=== PATIENT | female | born 1965 | race Caucasian/White ===

== ENCOUNTER → 2020-12-11 | Day surgery (SDC) | payer OTHER ==
[~2020-12-11] MED LIST: Acetaminophen 500 MG TAB ONE; Acetaminophen 500 MG TAB PO SCH; CASIRIVIMAB 1,200 MG, IMDEVIMAB 1,200 MG in Sodium Chloride 0.9% 250 ML 250 ML IV SCH; diphenhydrAMINE 50 MG/ML VIAL IVP SCH; diphenhydrAMINE 50 MG/ML VIAL ONE
== END ==
LOC: CSHSDC/OP 09:46
PROVIDERS: ATTEND Family Medicine
DX: Z23 Encounter for immunization (principal); U07.1 COVID-19
CPT/HCPCS: J1200; J7050

== ENCOUNTER 2023-09-15 14:51 | Outpatient (CLI) | payer BC | END 2023-09-15 14:52 | disposition home or self-care (01) | LOC: CSHMAMMO 14:51 | PROVIDERS: ATTEND Obstetrics & Gynecology | DX: Z12.31 Encounter for screening mammogram for malignant neoplasm of breast (principal) | CPT/HCPCS: 77063; 77067 ==

== ENCOUNTER 2024-06-16 08:38 | Emergency (ER) | payer BC ==
[2024-06-16] MEDS ORDERED: Ondansetron PF 4 MG/2 ML Vial ONE (09:03)
[2024-06-16] MEDS ORDERED: Morphine 4 MG/ML VIAL ONE (09:03)
[2024-06-16 09:15] LABS: #Basophils 0.05 10x3/uL (0.0-0.2); #Eosinophils 0.09 10x3/uL (0.0-0.5); #Monocytes 0.79 10x3/uL (0.0-1.1); #Neutrophils 11.04 10x3/uL (1.5-8.4); %Basophils 0.4 % (0.0-2.0); %Eosinophils 0.7 % (0.0-6.0); %Lymphocytes 10.6 % (18.0-47.0); %Monocytes 5.9 % (0.0-10.0); %Neutrophils 82.1 % (40.0-75.0); Hematocrit 43.2 % (34.9-44.5); Hemoglobin 14.4 g/dL (12.0-15.5); Mean Corpuscular HGB CONC 33.3 g/dL (32.0-36.0); Mean Corpuscular Hemoglobin 28.1 pg (27.0-33.0); Mean Corpuscular Volume 84.4 fL (81.6-98.3); Mean Platelet Volume 10.9 fL (7.4-10.4); Platelet Count 326 10x3/uL (150-450); Red Blood Cell (RBC) Count 5.12 10x6/uL (3.90-5.03); White Blood Cell (WBC) Count 13.4 10x3/uL (3.5-10.5)
[2024-06-16 09:28] LABS: ALT (SGPT) 66 U/L (8-55); AST (SGOT) 78 U/L (5-34); Albumin 4.3 g/dL (3.5-5.0); Alkaline Phosphatase 69 U/L (40-110); Anion Gap 15 mmol/L (10-20); BUN (Urea Nitrogen) 20 mg/dL (9.8-20.1); Bilirubin, Total 0.9 mg/dL (0.2-1.2); Calc. Creatinine Clearance 0 mL/min (70-130); Calcium 10.2 mg/dL (7.8-10.44); Carbon Dioxide 22 mmol/L (22-29); Chloride 107 mmol/L (98-107); Estimated GFR 81; Globulin 4.2 g/dL (2.4-3.5); Glucose 139 mg/dL (70-105); Lipase 57 U/L (8-78); Potassium 3.7 mmol/L (3.5-5.1); Protein, Total 8.5 g/dL (6.0-8.3); Sodium 140 mmol/L (136-145)
[2024-06-16 09:39] LABS: Bilirubin Neg (Negative); Blood, Urine Negative (Negative); Clarity Clear (Clear); Glucose, Urine (Dipstick) Normal (Negative); Ketone, Urine Negative (Negative); Leukocyte 25 (Negative); Nitrite Negative (Negative); Protein, Urine (Dipstick) 30 mg/dl (Neg-Trace)
[2024-06-16 09:47] LABS: Bacteria/HPF 2+ HPF (None Seen); CAUTI Indications for Culture Pelvic or flank pain; Mucous/LPF 3+ LPF (<2+); RBC/HPF None Seen HPF (0-3); Squamous Epithelial 0-3 HPF (0-3); Urine Culture Reflex No No; WBC/HPF 0-3 HPF (0-3)
[2024-06-16] MEDS ORDERED: Iopamidol 300 61% 100 ML VIAL FS ONE (12:05)
== END 2024-06-16 12:44 | disposition home or self-care (01) ==
LOC: CSHERS 08:38
DX: K80.20 Calculus of gallbladder without cholecystitis without obstruction (principal); E03.9 Hypothyroidism, unspecified; I10 Essential (primary) hypertension; Z79.899 Other long term (current) drug therapy
CPT/HCPCS: 74177; 76705; 80053; 81001; 83690; 85025; 93005; 96374; 96375; J2272; J2405; Q9967